=== PATIENT | female | born 1995 | race Caucasian/White ===

== ENCOUNTER 2018-08-05 22:55 | Observation (INO) | payer BC ==
[~2018-08-05] VITALS: Ht 167.6 cm; Wt 55.0 kg
[~2018-08-05 22:55] MED LIST: BACTRIM DS1 TAB OR; DARVOCET N-100100 - OR; NO
--- NOTE | 2018-08-05 23:06 | NUR ---
PATIENT TO TREATMENT AREA AND TO BATHROOM FOR URINE SAMPLE.
[2018-08-05 23:39] LABS: HEMATOCRIT 42.7 % (37.0-47.0); HEMOGLOBIN 13.9 g/dl (12.0-16.0); IMMATURE GRANULOCYTES 0.5 % (0.0-5.0); MEAN CELL VOLUME 97.3 fL CALC (80.0-100.0); MEAN CORPUSCULAR HGB 31.7 pG CALC (26.0-32.0); MEAN CORPUSCULAR HGB CONC 32.6 g/L CALC (32.0-36.0); NEUT# 11.78 thou/uL (2.00-7.15); RED BLOOD COUNT 4.39 mill/uL (4.20-5.60); RED CELL DISTRI WIDTH 11.6 % (11.5-15.5); URINE BILIRUBIN - DIPSTICK NEGATIVE (NEGATIVE); URINE BLOOD DIPSTICK SMALL (NEGATIVE); URINE COLOR YELLOW; URINE GLUCOSE - DIPSTICK NEGATIVE (NEGATIVE); URINE KETONE >=80 mg/dL (NEGATIVE); URINE LEUK ESTERASE NEGATIVE (NEGATIVE); URINE NITRITE - DIPSTICK NEGATIVE (Negative); URINE PROTEIN - DIPSTICK NEGATIVE (NEG-TRACE); URINE SPECIFIC GRAVITY 1.025; URINE UROBILINOGEN - DIPSTICK 0.2 E.U./dL (0.2)
[2018-08-05 23:44] LABS: URINE BACTERIA FEW hpf; URINE MUCUS MODERATE hpf (NONE-FEW); URINE RBC 0-2 RBC/hpf (0-5); URINE SQUAMOUS EPITHELIAL CELL MANY EPI/hpf (0-FEW); URINE WBC 0-2 WBC/hpf (0-5)
[2018-08-05 23:45] LABS: ALBUMIN 5.4 g/dL (3.2-5.0); ALKALINE PHOSPHATASE 58 u/l (38-126); AMYLASE 63 u/l (30-110); ANION GAP 19 (6-22 (CALC)); BILIRUBIN, TOTAL 0.5 mg/dL (0.0-1.4); BUN 11 mg/dL (7-17); BUN/CREATININE RATIO 14 (12-20 (CALC)); CARBON DIOXIDE 21 mmol/l (22-30); CHLORIDE 104 mmol/l (95-108); CREATININE 0.8 mg/dL (0.5-1.0); GFR > 60 ML/MIN (>=60 (CALC)); GFR FOR AFR.AMER. > 60 ML/MIN (>=60 (CALC)); LIPASE 106 u/l (23-300); SGOT/AST 22 u/l (14-36); SODIUM 140 mmol/l (137-146); TOTAL PROTEIN 8.7 g/dL (6.3-8.2)
[2018-08-05 23:54] LABS: POTASSIUM 4.1 mmol/l (3.5-5.1)
[2018-08-06] VITALS (14 sets, daily range): BP systolic 89–112; BP diastolic 34–62
--- NOTE | 2018-08-06 00:03 | NUR ---
NEGATIVE HCG- PT TO CT VIA WHEELCHAIR. DAD STILL AT BEDSIDE.
--- NOTE | 2018-08-06 01:05 | NUR ---
DR DUQUE IN TO GO OVER RESULTS WITH PT AND DAD.
--- NOTE | 2018-08-06 01:50 | NUR ---
Admission Note Report Given to: BLANCA SONI Transported by: X Wheelchair Stretcher Transported with: X Nurse Transporter X Patent IV [id number] Attorney
--- NOTE | 2018-08-06 01:50 | NUR ---
PT. ARRIVED TO THE FLOOR VIA W/C ACCOMPANIED BY ER NURSE. PT. AMBULATORY; NO DISTRESS NOTED; ADMISSION ASSESSMENT COMPLETED; IV SITE PATENT WITH ORDERED ZOSYN INFUSING; PT. DOES C/O ABD PAIN DULL/ACHING 5/10; WILL CALL ER DOCTOR FOR FURTHER ORDERS; EDUCATED ON POC, CALL LIGHT USE, AND ROOM; VERBALZIES UNDERSTANDING; APRIL HOSE PLACED TO BLE; PT. IS NPO; MOUTH SWABS PROVIDED; INSTRUCTED TO CALL FOR ANY NEEDS; CALL LIGHT IS IN REACH.
--- NOTE | 2018-08-06 02:25 | NUR ---
PT. IS GIVEN AN INCENTIVE SPIROMETER AND GAVE RETURN DEMONSTRATION FOR PRE-OP INTERVENTION; INSTRUCTION GIVEN ON USAGE POST -OP 10X AN HOUR WHILE AWAKE; VERBALIZES UNDERSTANDING; PT. IS MEDCIATED FOR ABDOMINAL PAIN 09/12 WITH ORDERED ONE TIME DOSE OF TORADOL; WILL REASSESS;
--- NOTE | 2018-08-06 05:42 | NUR ---
PT. RESTING IN BED WITH NO DISTRESS NOTED; DENIES NEEDS; REASSESSED TEMP AND IS 99.0; WILL CONTINUE TO MONITOR. CALL LIGHT IS IN REACH.
--- NOTE | 2018-08-06 08:14 | NUR ---
ASSESSMENT COMPLETED; SITTING UP IN BED WATCHING TV; RESP EVEN AND UNLABORED ON ROOM AIR; C/O NO PAIN; IVF NS INFUSING @125CC/HR, SITE APPEARS HEALTHY; REMIAN NPO; ENCOURAGE TO USE IS, VERBALIZE UNDERSTANDING; CALL SHOEMAKER IN REACH; SAFETY PRECAUTION REINFORCE; FAMILY MEMBER AT BEDSIDE; WILL CONTINUE TO MONITOR.
--- NOTE | 2018-08-06 09:58 | NUR ---
PT UP TO THE RESTROOM, AMBULATE WITH STEADY GAIT; AWARE OF LAPARASCOPIC APPENDECTOMEY THIS AM; VITALS STABLE; C/O NO PAIN; REMAIN NPO. VOIDED 200CC CLEAR, KURTIS URINE;
--- NOTE | 2018-08-06 10:17 | NUR ---
PT OFF FLOOR IN STABLE CONDITION, VIA STRETCHER, ACCOMPANIED BY OR STAFF AND FAMILY MEMBER.
--- NOTE | 2018-08-06 13:25 | NUR ---
PT ARRIVED TO FLOOR VIA STRETCHER, ACCOMPANIED BY TWO OR STAFF IN STABLE CONDITION; TRF SELF FROM STRETCHER TO BED WITHOUT ASSISTANCE; PT APPEARS SLEEPY BY ALERT; 3 SM INCISION NOTED TO ABD, NO DRAINAGE NOTED; VITALS TAKEN TEMP 98, HR 68, RESP 16, B/P 92/41; MANUAL B/P TAKEN (95/40) D5-1/2 INFUSING @100CC/HR, IVS APPEARS HEALTHY; ICE CHIPS PROVIDED; SCD TO BILAT LEGS; CALL SHOEMAKER IN REACH;
--- NOTE | 2018-08-06 14:23 | NUR ---
PT SITTING UP IN BED, SEEMS MORE AWAKE, RESP EVEN AND UNLABORED ON ROOM AIR. B/P REMAIN LOW 90/34, HR 64; ABLE TO TOLERATE ICE CHIPS; C/O OF NO PAIN; FATHER AT BEDSIDE. CALL SHOEMAKER IN REACH; SAFETY PRECAUTION REINFORCE;
--- NOTE | 2018-08-06 15:12 | NUR ---
pt appears to be sleeping with both eyes closed; resp even and unlabored; b/p remains low; no s/s of distress noted; will continue to monitor.
--- NOTE | 2018-08-06 16:12 | NUR ---
C/O OF NAUSEA, MEDICATED WITH ZOFRAN; C/O OF NO PAIN; SAFETY PRECAUTION REINFORCE;
--- NOTE | 2018-08-06 17:06 | NUR ---
PT AWAKE, MORE ALERT, WATCHING TV; STATES "I FEEL MUCH BETTER NOW" IVF INFUSING WITHOUT DIFFICULTY; NO S/S OF DISTRESS NOTED;
--- NOTE | 2018-08-06 18:48 | NUR ---
ASSISTED PT TO THE RESTROOM AND BACK TO BED, TOLERATED WELL; VOIDED 200CC, CLEAR, YELLOW URINE. READY TO EAT SUPPER NOW, FAMILY MEMBERS AT BEDSIDE; CALL SHOEMAKER IN REACH.
--- NOTE | 2018-08-06 19:30 | NUR ---
PATIENT RESTING IN BED-AWAKE ALERT AND ORIENTEDX3. PATIENT WITH NO COMPLAINTS AT THIS TIME. STATES THAT SHE DID EAT DINNER AND TOLERATING WELL SO FAR. PATIENT WITH IV SITE TO LEFT AC WITH IVF D51/2NS PATENT AND INFUSING AT 100CC/HR. SITE APPEARS HEALTHY AT THIS TIME. PATIENT IS ABLE TO DEMONSTRATE PROPER USE OF IS-INSTRUCTED TO USE Q1H WHILE AWAKE. VERBALIZES UNDERSTANDING OF THE STATED. ANASTACIO SCD IN PLACE. 3 INCISIONS INTACT WITH DERMABOND-NO DRAINAGE NOTED. SAFETY PRECAUTIONS REINFORCED. CALL LIGHT IN REACH. WILL CONT TO MONITOR.
--- NOTE | 2018-08-07 00:21 | NUR ---
PATIENT ASSISTED TO BR TO VOID QS CLEAR YELLOW URINE AND THEN BACK TO BED. PATIENT C/O POST-OP PAIN-MEDICATED WITH SCHEDULED TORADOL AND WITH DILAUDID 1MG IVP FOR PAIN. IVF PATENT AND INFUSING AT 100CC/HR-SITE TO LEFT AC REMAINS HEALTHY. ZOSYN HUNG ORDERED. ENCOURAGED USE OF IS ORDERED. CALL LIGHT IN REACH. WILL CONT TO MONITOR.
[2018-08-07 04:04] VITALS: BP 99/42
--- NOTE | 2018-08-07 06:00 | NUR ---
PATIENT RESTING IN BED-C/O POST-OP ABD PAIN. MEDICATED WITH SCHEDULED TORADOL AND LORTAB 5/325 FOR 6/10 ON PAIN SCALE. IVF PATENT AND INFUSING AT 100CC/HR. SAFETY PRECAUTIONS REINFORCED. CALL LIGHT IN REACH. WILL CONT TO MONITOR.
--- NOTE | 2018-08-07 06:45 | NUR ---
REPORT RECEIVED FROM JONH; PT SITTING UP IN BED, RESP EVEN & UNLABORED; VOICE NO CONCERNS; WILL CONTINUE TO MONITOR.
[2018-08-07 08:38] VITALS: BP 99/51
--- NOTE | 2018-08-07 08:49 | NUR ---
PT SITTING UP IN BED WATCHING TV; ASSESSMENT COMPLETED; A/OX3; RESP EVEN AND UNLABORED ON ROOM AIR; 3 ABD INCISIONS INTACT WITH DERMABOND, NO DRAINAGE NOTED; #20G IV LAC, IVF D5-1/2@100CC/HR; SITE APPEARS HEALTHY; ENCOURAGE TO USE IS; PRUNE JUICE GIVEN; C/O OF ABD 06/15; EMPTIED 400CC CLEAR, YELLOW URINE; CALL SHOEMAKER IN REACH; WILL CONTINUE TO MONITOR.
--- NOTE | 2018-08-07 09:05 | NUR ---
PT AMBULATE THE HALLS, NOW BACK INTO HER ROOM BRUSHING HER TEETH; ADVISE TO LET ME KNOW IF SHE NEEDS PAIN MEDS; VERBALIZE UNDERSTANDING;
[2018-08-07] MEDS ORDERED: LORTAB 5/3255 MG PO (10:53)
[2018-08-07 11:46] VITALS: BP 92/49
--- NOTE | 2018-08-07 11:47 | NUR ---
PT SITTING UP IN BED WATCHING TV, READY TO EAT LUNCH; RESP EVEN AND UNLABORED ON ROOM AIR; ZOSYN INFUSHING WITHOUT DIFFICULTY; SITE APPEARS HEALTHY; VOICE NO CONCERNS; WILL CONTINUE TO MONITOR.
--- NOTE | 2018-08-07 14:05 | NUR ---
D/C INSTRUCTIONS GIVEN TO PT ALONG WITH PRESCRIPTION; VERBALIZING UNDERSTANDING; IV REMOVED, CATH INTACT; WAITING ON RIDE; REQUEST PAIN MED (GIVEN)
--- NOTE | 2018-08-07 15:00 | NUR ---
Discharge instructions given. Patient verbalizes understanding of same. Discharged in stable condition via Ambulatory to Home with family. All belongings sent with pt.
== END 2018-08-07 15:00 | disposition home or self-care (01) | DRG 340 ==
LOC: ED 22:55 → ED-I 23:33 → ED 23:33 → ED-I 08-06 01:02 → ED 08-06 01:22 → MS2 08-06 01:23
PROVIDERS: Emergency Medicine; ADMIT Surgery; ATTEND Surgery
PROC: 0DTJ4ZZ Resection of Appendix, Percutaneous Endoscopic Approach (ICD-10-PCS; principal; 2018-08-06)
DX: K35.32 Acute appendicitis with perforation, localized peritonitis, and gangrene, without abscess (principal)
CPT/HCPCS: G0378; J0131; J2270; J2710